=== PATIENT | female | born 1955 | race Caucasian/White ===

== ENCOUNTER 2017-04-02 06:12 | Day surgery (SDC) | payer OTHER ==
[2017-04-01 08:56] VITALS: BMI 28.6
[~2017-04-02 06:12] MED LIST: BUPIVACAINE HCL/PF 0.5% (5MG/ML) 10 ML VIAL IJ ONE; LIDOCAINE HCL 1%, 10 MG/ML (20ML VIAL) PNB ONE
[2017-04-02] MEDS ORDERED: LIDOCAINE HCL 1%, 10 MG/ML (20ML VIAL) ONE (07:19)
[2017-04-02] MEDS ORDERED: BUPIVACAINE HCL/PF 0.5% (5MG/ML) 10 ML VIAL ONE (07:19)
[2017-04-02] MEDS ORDERED: PROPOFOL 20 ML ONE (07:52)
[2017-04-02] MEDS ORDERED: MIDAZOLAM HCL 2 MG/2 ML SINGLE DOSE VIAL ONE (07:52)
[2017-04-02] MEDS ORDERED: SUCCINYLCHOLINE CHLORIDE 200 MG/10 ML VIAL ONE (07:52)
--- NOTE | 2017-04-02 08:19 | HP ---
[facility] - Chief Complaint Chief Complaint: left hand pain and numbness History of Present Illness: left CTS History Source: Patient Limitations to Obtaining History: No Limitations - Past Medical History Allergies/Adverse Reactions: Allergies Allergy/AdvReac Type Severity Reaction Status Date / Time heparin AdvReac Intermediate Rash Verified 04/02/17 07:02 - Current Medications Current Medications: Home Medications Medication Instructions Recorded Amlodipine Besylate [Norvasc -] 2.5 mg PO DAILY 04/01/17 Gabapentin 300 mg PO HS 04/01/17 Losartan Potassium 100 mg PO DAILY 04/01/17 Satellite Physical Exam - Physical Examination Vital Signs: Vital Signs Period Temp Pulse Resp BP Sys/Lucas Pulse Ox Last 24 Hr 98.3 F-98.3 F 85-85 20-20 134-134/76-76 98 General Appearance: Well Nourished ENT: Clear Lung: Clear to auscultation Heart: Regular rate & rhythm Breasts: Soft Abdomen: Soft Extremities: No edema Satellite Impression/Plan - Impression/Plan Impression: left CTS Operative Procedure: left CTR Date to be Performed: 04/02/17
[2017-04-02] MEDS ORDERED: ceFAZolin SODIUM 1 GM VIAL IVPB ONE (08:35)
[2017-04-02] MEDS ORDERED: oxyCODONE HCL 5 MG TABLET PO PRN (08:37)
[2017-04-02] MEDS ORDERED: ONDANSETRON 4 MG/2 ML VIAL IVPUSH PRN (08:37)
[2017-04-02] MEDS ORDERED: LIDOCAINE HCL 1%, 10 MG/ML (20ML VIAL) PNB ONE (08:40)
[2017-04-02] MEDS ORDERED: BUPIVACAINE HCL/PF 0.5% (5MG/ML) 10 ML VIAL IJ ONE (08:40)
[2017-04-02] MEDS ORDERED: ceFAZolin SODIUM 1 GM VIAL ONE (08:42)
[2017-04-02] MEDS ORDERED: LACTATED RINGERS SOLUTION 1,000 ML IV SCH (08:45)
--- NOTE | 2017-04-02 09:03 | OP ---
Operative Note - Note: Operative Date: 04/02/17 Pre-Operative Diagnosis: left CTS Operation: left CTR, tenosynovectomy Post-Operative Diagnosis: Same as Pre-op Surgeon: Adriano Willis Anesthesiologist/[employer] SALES REPRESENTATIVE: Leatha Shepard Anesthesia: Local, MAC Specimens Removed: tenosynovium Estimated Blood Loss (mls): 0 Drains, Volume Out (mls): 0 Blood Volume Replaced (mls): 0 Fluid Volume Replaced (mls): 500 Operative Report Dictated: Yes
--- NOTE | 2017-04-02 09:50 | SPEC ---
DATE OF OPERATION: 04/02/2017 PREOPERATIVE DIAGNOSIS: Left carpal tunnel syndrome. POSTOPERATIVE DIAGNOSIS: Left carpal tunnel syndrome. PROCEDURE: Left carpal tunnel release and tenosynovectomy. SURGEON: Adriano Willis MD ASSISTANTS: None. RAISIN WASHER: Leatha Shepard CRNA ANESTHESIA: MAC anesthesia, local injection of 12 mL of 0.5% Marcaine and 1% lidocaine mixed. DRAINS: None. COMPLICATIONS: None. SPECIMENS: Tenosynovium, left wrist. BLOOD LOSS: None. BLOOD GIVEN: None. INDICATIONS: This patient is a 61-year-old female with a preoperative diagnosis of a left carpal tunnel syndrome with tenosynovitis. After understanding the potential risks, complications, alternatives, and benefits of surgery versus nonsurgical treatment, the patient elected to undergo this procedure. She has double crush phenomenon, a cervical radiculopathy, therefore, she understands that she may not get complete relief of her symptoms, both permanent nerve damage at the level of the wrist and also secondary point of compression at the cervical spine. DESCRIPTION OF PROCEDURE: The patient was brought to the operating room, peripheral IV placed and intravenous sedation was given. One gram of intravenous Ancef was given. MAC anesthesia was induced. A tourniquet was applied to the left upper arm and the left upper extremity was prepped and draped in sterile fashion. The entire case was done under 3.8 loupe magnification. A marking pen was utilized to jigna out a longitudinal incision in an already existing skin crease. Twenty mL of 0.5% Marcaine mixed with 1% Lidocaine was injected in and around the surgical incision. The left upper extremity was elevated, exsanguinated with an Esmarch bandage and the tourniquet inflated to 250 mmHg. A No. 15 scalpel blade was utilized to cut down through the skin. Subcutaneous hemostasis was achieved with the bipolar cautery. Dissection was done through the superficial palmar fascia. Self-retaining retractors were placed into the wound. Under direct visualization, the transverse carpal ligament was transected with a No. 15 scalpel blade, exposing the median nerve and the contents of the carpal tunnel. The distal and proximal extents of the release were completed with a Littler scissor and checked with irrigation and my small finger. They were seen to be complete. Limited dissection was done on the radial side of the median nerve and more extensive dissection was done on the ulnar side of the median nerve. The patients nerve was seen to be quite compressed by epineurium and therefore a limited epineurotomy was performed. A Ragnell retractor was used to gently retract the median nerve in a radial direction. The patient had a lot of tenosynovitis and therefore a tenosynovectomy was performed off all 9 flexor tendons. This was passed off the field as tenosynovium left wrist. The floor of the carpal tunnel was checked. There were no abnormal masses or ganglion cysts. The area was copiously irrigated and washed out and closure begun. Undyed 4-0 Vicryl was used to close the deep dermal layer. Final skin reapproximation was done with horizontal mattress 4-0 nylon sutures. The area was then washed and dried, covered with Xeroform, 4x4s, fluffs between the fingers, Webril and a 4-inch plaster roll was utilized to make a volar splint, which was then wrapped with Kelsea and Coban. The tourniquet was taken down after a total tourniquet time of 15 minutes. There were no complications during the case. The patient tolerated the procedure well and was brought to the ambulatory recovery room in stable condition. Sultana [id number]
[2017-04-02 12:47] VITALS: BP 110/60; PULSE 64; TEMP 97.8
--- NOTE | 2017-04-03 13:51 | PATH ---
Surgical Pathology Report Patient Name: ANKUR RASMUSSEN [facility]. Rec. #: [id number] /Age/Gender: 1955 (Age: 61) / F Account: [id number] Location: [facility] Taken: 04/02/2017 Received: 04/02/2017 Reported: 04/03/2017 Physicians: Adriano Willis M.D. Specimen(s) Received LEFT TENOSYNOVIUM Clinical History Carpal tunnel syndrome Final Diagnosis SOFT TISSUE, LEFT WRIST, CARPAL TUNNEL RELEASE: TENOSYNOVIUM. Electronically Signed Paulo Holland M.D. Gross Description Received in formalin labeled "left tenosynovium," is a 2.1 x 1.3 x 0.2 cm portion of barton-yellow soft tissue, consistent with tenosynovium. The specimen is submitted in toto in one cassette. /04/02/201704/02/2017
== END 2017-04-02 12:45 | disposition home or self-care (01) ==
LOC: JASU-SURG 06:12
PROVIDERS: ATTEND Orthopaedic Surgery
PROC: 0LT60ZZ Resection of Left Lower Arm and Wrist Tendon, Open Approach (ICD-10-PCS; 2017-04-02)
PROC: 01N50ZZ Release Median Nerve, Open Approach (ICD-10-PCS; principal; 2017-04-02 08:00)
DX: G56.02 Carpal tunnel syndrome, left upper limb (principal); M65.832 Other synovitis and tenosynovitis, left forearm
CPT/HCPCS: 88304-TC; 94760

== ENCOUNTER 2021-10-25 04:28 | Day surgery (SDC) | payer OTHER ==
[2021-10-22 14:55] VITALS: BMI 30.2
[2021-10-25 09:47] VITALS: BP 119/65; PULSE 79; TEMP 97.7
== END 2021-10-25 09:46 | disposition home or self-care (01) ==
LOC: JASU-ENDO 04:28
PROVIDERS: ATTEND Internal Medicine Gastroenterology
PROC: 0DB78ZX Excision of Stomach, Pylorus, Via Natural or Artificial Opening Endoscopic, Diagnostic (ICD-10-PCS; 2021-10-25)
PROC: 0DJD8ZZ Inspection of Lower Intestinal Tract, Via Natural or Artificial Opening Endoscopic (ICD-10-PCS; principal; 2021-10-25 08:00)
DX: Z12.11 Encounter for screening for malignant neoplasm of colon (principal); K29.30 Chronic superficial gastritis without bleeding; K21.9 Gastro-esophageal reflux disease without esophagitis; I10 Essential (primary) hypertension
CPT/HCPCS: 43239; G0121; 88305-TC; 88342-TC